=== PATIENT | female | born 1985 | race Caucasian/White ===

== ENCOUNTER 2017-09-22 21:08 | Emergency (ER) | payer OTHER ==
[~2017-09-22] VITALS: Ht 162.6 cm; Wt 122.5 kg
--- NOTE | 2017-09-22 21:08 | NUR ---
BIBA TO ER BED 7
[2017-09-22 21:09] VITALS: BP 149/78
--- NOTE | 2017-09-22 21:10 | NUR ---
PT BIBA AND AND RECEIVED TO BED 7 VIA GURNEY. ASSUMED CARE OF PT AT THIS TIME. 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 C/O DULL LEFT SIDED NECK PAIN X 1 WEEK...PT DENIES ANY TRAUMA. PT DENIES ANY CP/SOB. PT STATES BEING UNDER INCREASED STRESS RECENTLY. PT DENIES N/V/D; SKIN IS PINK/WARM/DRY; PATIENT STATES PAIN OF 0/10 AT THIS TIME; VSS; PATIENT POSITIONED FOR COMFORT; HOB ELEVATED; BEDRAILS UP X2; BED DOWN. ER MD MADE AWARE OF PT STATUS. WILL CONTINUE TO MONITOR.
[2017-09-22 22:25] VITALS: BP 152/92
--- NOTE | 2017-09-22 22:25 | NUR ---
Patient discharged with v/s stable. Written and verbal after care instructions given and explained. Patient alert, oriented and verbalized understanding of instructions. Ambulatory with steady gait. All questions addressed prior to discharge. ID band removed. Patient advised to follow up with PMD. Rx of ATARAX AND ZOFRAN given. Patient educated on indication of medication including possible reaction and side effects. Opportunity to ask questions provided and answered.
== END 2017-09-22 22:25 | disposition home or self-care (01) ==
LOC: MED 21:08
DX: F41.9 Anxiety disorder, unspecified (principal)
CPT/HCPCS: 93005; 99283